=== PATIENT | female | born 1945 | race Caucasian/White ===

== ENCOUNTER 2019-09-27 17:33 | Emergency (ER) | payer MEDICARE ==
[~2019-09-27] VITALS: Ht 152.4 cm; Wt 67.0 kg
[~2019-09-27 17:33] MED LIST: AMLO-150 PO; BISO1TAB92 PO; CEPH-368 PO; EVOL140P3 SQ; POTA20TA14 PO
[2019-09-27] MEDS ORDERED: DIPH,PERTUSS(ACELL),TET VAC/PF 0.5 ML IM-VACC ONE ×2 (18:17→18:30)
== END 2019-09-27 18:24 | disposition home or self-care (01) ==
LOC: ED 18:18
DX: S60.512A Abrasion of left hand, initial encounter (principal); W26.8XXA Contact with other sharp object(s), not elsewhere classified, initial encounter; Y93.89 Activity, other specified; Y92.009 Unspecified place in unspecified non-institutional (private) residence as the place of occurrence of the external cause; Y99.8 Other external cause status
CPT/HCPCS: 90471; 90715; 99283

== ENCOUNTER 2021-01-11 15:22 | Emergency (ER) | payer MEDICARE ==
[~2021-01-11] VITALS: Ht 160 cm; Wt 65.7 kg
--- NOTE | 2021-01-11 15:45 | NUR ---
PHOTOGRAPH PRINTER: EKG DONE IN TRIAGE.
--- NOTE | 2021-01-11 16:35 | NUR ---
Monique, PHLEBOTOMIST MEDICAL LAB ASSISTANT to bedside for eval. Pt is nondiscript about what brings her to the ER. "It's vague." Pt reports hx of same 5 years ago when they added a CCB to her daily meds on top of her beta jenn. She has not had cardiac or respiratory issues since after complete negative cardiac work up 5 years ago.
[2021-01-11 17:09] LABS: BASOPHILS % (AUTO) 1 % (0-1); EOSINOPHILS % (AUTO) 1 % (1-7); LYMPHOCYTES % (AUTO) 16 % (22-44); MEAN CORPUSCULAR HEMOGLOBIN 28.7 pg (27.0-34.8); MEAN CORPUSCULAR HGB CONC 33.9 g/dL (32.4-35.8); MEAN PLATELET VOLUME 10.2 fL (7.4-10.4); MONOCYTES % (AUTO) 6 % (2-9); NEUTROPHILS % (AUTO) 77 % (42-75); PLATELET COUNT 200 x10^3/uL (130-400); RED BLOOD COUNT 5.35 x10^6/uL (3.82-5.3); RED CELL DISTRIBUTION WIDTH 15.5 % (9.6-15.2)
--- NOTE | 2021-01-11 17:15 | NUR ---
Pt ambulatory to bathroom for steady gait.
[2021-01-11 17:22] LABS: ALBUMIN 3.6 g/dL (3.4-5.0); ANION GAP 8 mmol/L (5-15); CALCIUM 8.9 mg/dL (8.5-10.1); CHLORIDE 106 mmol/L (98-107)
[2021-01-11 17:27] LABS: ALANINE AMINOTRANSFERASE 21 U/L (12-78); ALKALINE PHOSPHATASE 89 U/L (45-117); BILIRUBIN,TOTAL 0.4 mg/dL (0.2-1.0); TOTAL PROTEIN 7.6 g/dL (6.4-8.2); TROPONIN I < 0.015 ng/mL (0.000-0.045)
--- NOTE | 2021-01-11 17:54 | NUR ---
MD Castellon to bedside for eval.
[2021-01-11 17:56] VITALS: BP 168/78
== END 2021-01-11 18:16 | disposition home or self-care (01) ==
LOC: ED 17:35
DX: R00.2 Palpitations (principal); R06.02 Shortness of breath; R42 Dizziness and giddiness; R07.9 Chest pain, unspecified; R94.31 Abnormal electrocardiogram [ECG] [EKG]; R11.2 Nausea with vomiting, unspecified; I10 Essential (primary) hypertension; E78.00 Pure hypercholesterolemia, unspecified
CPT/HCPCS: 36415; 71045; 80053; 83880; 84484; 85025; 93005; 99285